=== PATIENT | female | born 1960 | race Caucasian/White ===

== ENCOUNTER 2017-03-31 12:36 | Emergency (ER) | payer BC ==
[2017-03-31] MEDS ORDERED: Tetan/Diph/Pertus SYR(Tdap)* 0.5 ML SYR(BOOSTRIX) use SYR IM ONE (12:44)
[2017-03-31 12:45] VITALS: BP 116/67
--- NOTE | 2017-03-31 13:04 | UC ---
Laceration HPI - HPI Summary HPI Summary: laceration left index finger x 1 hr ago cut her left index finger with hedge trimming blade - History Of Current Complaint Chief Complaint: UCLaceration Stated Complaint: FINGER LACERATION Time Seen by Provider: 03/31/17 12:39 Hx Obtained From: Patient Laceration Location: Hand - left index distal phalangs Mechanism Of Injury: Sharp Trauma - hedge trimming blade Onset/Duration: Sudden Onset, Lasting Hours - 1, Still Present Severity: Moderate Aggravating Factors: Movement - Allergies/Home Medications Allergies/Adverse Reactions: Allergies Allergy/AdvReac Type Severity Reaction Status Date / Time bee sting Allergy Dizziness Uncoded 04/16/14 14:36 PMH/Surg Hx/FS Hx/Imm Hx Previously Healthy: Yes - Surgical History Surgical History: None - Family History Known Family History: Negative: Diabetes - Social History Alcohol Use: Daily Alcohol Amount: 1 wine Substance Use Type: None Smoking Status (MU): Never Smoked Tobacco Review of Systems Constitutional: Negative Eyes: Negative ENT: Negative Respiratory: Negative Cardiovascular: Negative Gastrointestinal: Negative Genitourinary: Negative All Other Systems Reviewed And Are Negative: Yes Physical Exam Triage Information Reviewed: Yes Appearance: Well-Appearing, No Pain Distress, Well-Nourished Vital Signs: Initial Vital Signs Temp 98.5 F 03/31/17 12:41 Pulse 64 03/31/17 12:41 Resp 18 03/31/17 12:41 BP 116/67 03/31/17 12:41 Pulse Ox 99 03/31/17 12:41 Vital Signs Reviewed: Yes Eye Exam: Normal Eyes: Positive: Conjunctiva Clear ENT: Positive: Normal ENT inspection, Hearing grossly normal, Pharynx normal Neck: Positive: Supple, Nontender, No Lymphadenopathy Respiratory: Positive: Chest non-tender, Lungs clear, Normal breath sounds Cardiovascular: Positive: RRR, No Murmur, Pulses Normal Abdomen Description: Positive: Nontender, Soft Bowel Sounds: Positive: Present Skin: Positive: Other - laceration left indext figer : 1 cm in , minimal bleeding, + skin flap Laceration Repair - Laceration Repair 1 Description: Stellate Modified For Repair: No Cleansing Completed Via Routine Prep: Yes Irrigation With Pressure Irrigation Device: Yes Closure Material: Skin Adhesive Laceration Course/Dx - Differential Dx - Laceration/Wound Provider Diagnoses: laceration left index finger Discharge - Discharge Plan Condition: Stable Disposition: HOME Patient Education Materials: Skin Adhesive Care (ED) Referrals: Evelio Paula MD [Primary Care Provider] - 5 Days
== END 2017-03-31 13:13 | disposition home or self-care (01) ==
LOC: UCEAST 12:36
DX: S61.210A Laceration without foreign body of right index finger without damage to nail, initial encounter (principal); W29.3XXA Contact with powered garden and outdoor hand tools and machinery, initial encounter; Y93.9 Activity, unspecified; Y92.9 Unspecified place or not applicable; Z91.030 Bee allergy status; Z23 Encounter for immunization
CPT/HCPCS: 90471; 90715; 99211; G0463